=== PATIENT | male | born 2000 | race American Indian/Alaskan Native ===

== ENCOUNTER 2022-01-08 03:18 | Emergency (ER) | payer SELFPAY ==
[2022-01-08 04:09] LABS: Basophils % (Auto) 0.5 % (0.0-1.8); Hematocrit 47.4 % (35.5-45.6); Hemoglobin 16.2 gm/dl (11.8-15.2); Lymphocytes # (Auto) 0.4 K/mm3 (1.2-5.4); Lymphocytes % (Auto) 6.1 % (13.4-35.0); Mean Corpuscular HGB Conc 34 % (32-34); Mean Corpuscular Volume 90 fl (84-94); Monocytes # (Auto) 0.7 K/mm3 (0.0-0.8); Monocytes % (Auto) 11.7 % (0.0-7.3); Platelet Count 231 K/mm3 (140-440); Red Blood Count 5.28 M/mm3 (3.65-5.03); Red Cell Distribution Width 12.6 % (13.2-15.2)
[2022-01-08 04:22] LABS: BUN/Creatinine Ratio 22; Blood Urea Nitrogen 20 mg/dL (9-20); Calcium 9.8 mg/dL (8.4-10.2); Hemolysis Index 232
[2022-01-08 06:19] VITALS: BP 154/95
--- NOTE | 2022-01-08 08:34 | Emergency Department Report ---
ED General Adult HPI - General Chief complaint: Medical Clearance Stated complaint: DRUG INGESTION PUI?: No Time Seen by Provider: 01/08/22 07:38 Source: patient, EMS Mode of arrival: Stretcher Limitations: Altered Mental Status - History of Present Illness Initial comments: This is a 21-year-old male brought in by family member with concerns of chest discomfort and also passing out and hit his head. Nurse brought to my attention that patient wants to leave against medical vice. During my evaluation patient provided me the history of present illness and state that he wants to leave as well. Patient is aware of the year 2021 and also Mother's Day just past as well as runny eyes January 08. Patient is aware [employer] and also the one before was Dony Crowder. I have explained to the patient that he is having ch est discomfort which could be possible myocardial infarction or heart attack and also that he passing out which could be a sign of possible mini stroke; however patient still insist on leaving AGAINST MEDICAL ADVICE despite knowing that it could be a life-threatening situation. I have informed the family member also patient himself to return to the ER immediately if he changes his mind otherwise to make a follow-up appointment with primary care provider to be seen within 2 to 3 days. - Related Data Allergies Allergy/AdvReac Type Severity Reaction Status Date / Time Unable to Assess Allergy Unverified 01/08/22 03:40 ED Review of Systems ROS: Stated complaint: DRUG INGESTION Other details as noted in HPI Comment: All other systems reviewed and negative ED Past Medical Hx - Past Medical History Previous Medical History?: No Additional medical history: UTO - Surgical History Additional Surgical History: UTO - Social History Smoking Status: Unknown if ever smoked ED Physical Exam - General Limitations: Altered Mental Status General appearance: alert, anxious (which patient agrees that he does feel slightly anxious) - Head Head exam: Present: atraumatic, normocephalic, normal inspection - Eye Eye exam: Present: normal appearance, PERRL, EOMI Pupils: Present: normal accommodation - ENT ENT exam: Present: normal exam - Neck Neck exam: Present: normal inspection - Respiratory Respiratory exam: Present: normal lung sounds bilaterally - Cardiovascular Cardiovascular Exam: Present: regular rate - GI/Abdominal GI/Abdominal exam: Present: soft - Extremities Exam Extremities exam: Present: normal inspection, full ROM - Back Exam Back exam: Present: normal inspection, full ROM - Neurological Exam Neurological exam: Present: alert, altered, oriented X3, CN II-XII intact, normal gait - Psychiatric Psychiatric exam: Present: anxious - Skin Skin exam: Present: normal color ED Course Vital Signs 01/08/22 01/08/22 01/08/22 03:42 04:04 05:00 Temperature 98 F Pulse Rate 96 H 84 Respiratory 14 24 Rate Blood Pressure 136/90 Blood Pressure 155/88 [Left] O2 Sat by Pulse 97 97 97 Oximetry 01/08/22 06:00 Temperature Pulse Rate 94 H Respiratory 15 Rate Blood Pressure Blood Pressure 154/95 [Left] O2 Sat by Pulse 100 Oximetry ED Medical Decision Making - Lab Data Result diagrams: 01/08/22 03:43 01/08/22 03:43 Critical care attestation.: If time is entered above; I have spent that time in minutes in the direct care of this critically ill patient, excluding procedure time. ED Disposition Clinical Impression: Chest pain, Loss of consciousness, Anxious appearance Disposition: 07 LEFT AGAINST MEDICAL ADVICE Is pt being admited?: No Does the pt Need Aspirin: No Condition: Stable Instructions: Nonspecific Chest Pain, Adult Additional Instructions: If you change your mind, please return to the emergency room immediately for evaluation. Please make a follow-up appoint with primary care provider to be seen within 2 to 3 days. Time of Disposition: 08:34
== END 2022-01-08 08:42 | disposition left against medical advice (07) ==
LOC: ED 03:18
DX: R55 Syncope and collapse (principal); F41.1 Generalized anxiety disorder
CPT/HCPCS: 36415; 80048; 80320; 84484; 85025; 93005; 99284; G0480